=== PATIENT | female | born 1975 ===

== ENCOUNTER 2017-08-03 17:14 | Emergency (ER) | payer OTHER ==
[2017-08-03 17:35] VITALS: O2SAT 100
--- NOTE | 2017-08-03 18:25 | ED PDOC ---
Arrival/HPI - General Chief Complaint: Chest Pain Time Seen by Provider: 08/03/17 17:30 Historian: Patient - History of Present Illness Narrative History of Present Illness (Text): 08/03/17 17:57 A 42 year old female, whose past medical history includes hyperthyroidism, presents to the emergency department complaining of substernal chest pain for 2 hours. Patient denies of any fever, cough, shortness of breath, abdominal pain, nausea, vomiting, or any other complaints. Patient mentions taking baby aspirin but has had no relief. No PMD Time/Duration: Prior to Arrival (2 hours ago) Symptom Onset: Sudden Symptom Course: Unchanged Past Medical History - Provider Review Nursing Documentation Reviewed: Yes - Cardiac Hx Cardiac Disorders: Yes - Pulmonary Hx Respiratory Disorders: No - Neurological Hx Neurological Disorder: No Hx Alzheimer's Disease: No - HEENT Hx HEENT Disorder: No - Renal Hx Renal Disorder: No - Endocrine/Metabolic Hx Endocrine Disorders: No - Hematological/Oncological Hx Blood Disorders: No - Integumentary Hx Dermatological Disorder: No - Musculoskeletal/Rheumatological Hx Musculoskeletal Disorders: No - Gastrointestinal Hx Gastrointestinal Disorders: No Hx Bowel Surgery: No - Genitourinary/Gynecological Hx Genitourinary Disorders: No - Psychiatric Hx Psychophysiologic Disorder: No Hx Substance Use: No Family/Social History - Physician Review Nursing Documentation Reviewed: Yes Family/Social History: No Known Family HX Smoking Status: Never Smoked Hx Alcohol Use: No Hx Substance Use: No Allergies/Home Meds Allergies/Adverse Reactions: Allergies levofloxacin [From Levaquin] Allergy (Verified 08/03/17 17:22) "tremors" Home Medications: Home Meds Medication Instructions Recorded Confirmed No Known Home Med 08/03/17 08/03/17 Review of Systems - Physician Review All systems were reviewed & negative as marked: Yes - Review of Systems Constitutional: absent: Fevers Respiratory: absent: SOB, Cough Cardiovascular: Chest Pain (substernal chest pain) Gastrointestinal: absent: Abdominal Pain, Nausea, Vomiting Physical Exam Vital Signs Reviewed: Yes Vital Signs Temp Pulse Resp BP Pulse Ox 08/03/17 20:45 98.0 F 74 16 144/90 100 08/03/17 17:34 98.7 F 87 20 146/84 100 Temperature: Afebrile Blood Pressure: Normal Pulse: Regular Respiratory Rate: Normal Appearance: Positive for: Well-Appearing, Non-Toxic, Comfortable Pain Distress: None Mental Status: Positive for: Alert and Oriented X 3 - Systems Exam Head: Present: Atraumatic, Normocephalic Pupils: Present: PERRL Extroacular Muscles: Present: EOMI Conjunctiva: Present: Normal Mouth: Present: Moist Mucous Membranes Neck: Present: Normal Range of Motion Respiratory/Chest: Present: Clear to Auscultation, Good Air Exchange. No: Respiratory Distress, Accessory Muscle Use Cardiovascular: Present: Regular Rate and Rhythm, Normal S1, S2. No: Murmurs Abdomen: Present: Normal Bowel Sounds. No: Tenderness, Distention, Peritoneal Signs Back: Present: Normal Inspection Upper Extremity: Present: Normal Inspection. No: Cyanosis, Edema Lower Extremity: Present: Normal Inspection. No: Edema Neurological: Present: GCS=15, CN II-XII Intact, Speech Normal Skin: Present: Warm, Dry, Normal Color. No: Rashes Psychiatric: Present: Alert, Oriented x 3, Normal Insight, Normal Concentration Medical Decision Making ED Course and Treatment: 08/03/17 18:00 Impression: 42 year old female with substernal chest pain. Normal physical exam. Plan: -- EKG -- Chest X-ray -- Labs -- Reassess and disposition Progress Notes: EKG: Ordered, reviewed, and independently interpreted the EKG. Rate : 84 BPM Rhythm : NSR Interpretation : No ST-segment elevations or depressions, no T-wave inversions, normal intervals. Comparison : No previous EKG for comparison. - Lab Interpretations Lab Results: 08/03/17 19:00 08/03/17 19:00 Lab Results 08/03/17 20:00: Urine Opiates Screen Negative, Urine Methadone Screen Negative, Ur Barbiturates Screen Negative, Ur Phencyclidine Scrn Negative, Ur Amphetamines Screen Negative, U Benzodiazepines Scrn Negative, U Oth Cocaine Metabols Negative, U Cannabinoids Screen Negative 08/03/17 20:00: Urine Color Light yellow, Urine Appearance Sl cloudy, Urine pH 6.5, Ur Specific [place] <= 1.005, Urine Protein Negative, Urine Glucose (UA) Negative, Urine Ketones Negative, Urine Blood Trace-intact H, Urine Nitrate Negative, Urine Bilirubin Negative, Urine Urobilinogen 0.2, Ur Leukocyte Esterase Small H, Urine RBC 0 - 2, Urine WBC 2 - 5, Ur Epithelial Cells 3 - 4, Urine Bacteria Few 08/03/17 19:00: Free T4 1.10, Total T3 1.30, TSH 3rd Generation 0.70 08/03/17 19:00: D-Dimer, Quantitative 0.23 08/03/17 19:00: Sodium 136, Potassium 4.4, Chloride 103, Carbon Dioxide 25, Anion Gap 12, BUN 10, Creatinine 0.7, Est GFR ( Amer) > 60, Est GFR (Non- Af Amer) > 60, Random Glucose 94, Calcium 9.1, Magnesium 1.8, Total Bilirubin 0.8, AST 36, ALT 24, Alkaline Phosphatase 80, Lactate Dehydrogenase 763 H, Total Creatine Kinase 80, Troponin I < 0.01, Total Protein 8.3, Albumin 4.2, Globulin 4.0, Albumin/Globulin Ratio 1.0 L 08/03/17 19:00: WBC 9.5, RBC 4.21, Hgb 12.7, Hct 37.1, MCV 88.1, MCH 30.2, MCHC 34.2, RDW 13.3, Plt Count 283, MPV 8.3, Gran % 71.6 H, Lymph % (Auto) 21.4 L, [place] % (Auto) 6.3 H, Eos % (Auto) 0.5 L, Baso % (Auto) 0.2, Gran # 6.81 H, Lymph # 2.0, [place] # 0.6, Eos # 0.1, Baso # 0.02 - RAD Interpretation Radiology Orders: 08/03/17 17:30 CHEST PORTABLE [RAD] Stat - Medication Orders Current Medication Orders: Discontinued Medications Ketorolac Tromethamine (Toradol) 30 mg IVP STAT STA Stop: 08/03/17 18:22 Last Admin: 08/03/17 19:22 Dose: - Scribe Statement The provider has reviewed the documentation as recorded by the Danny Prado Provider Scribe Attestation: All medical record entries made by the [place]rib[place] were at my direction and personally dictated by me. I have reviewed the chart and agree that the record accurately reflects my personal performance of the history, physical exam, medical decision making, and the department course for this patient. I have also personally directed, reviewed, and agree with the discharge instructions and disposition. Disposition/Present on Arrival - Present on Arrival Any Indicators Present on Arrival: No History of DVT/PE: No History of Uncontrolled Diabetes: No Urinary Catheter: No History of Decub. Ulcer: No History Surgical Site Infection Following: None - Disposition Have Diagnosis and Disposition been Completed?: Yes Diagnosis: Non-cardiac chest pain Disposition: HOME/ ROUTINE Disposition Time: 20:20 Condition: GOOD Discharge Instructions (ExitCare): Chest Pain (ED) Additional Instructions: Thank you for letting us take care of you today. Your provider was Dr. Schmid. You were treated for noncardiac chest pain. The emergency medical care you received today was directed at your acute symptoms. If you were prescribed any medication, please fill it and take as directed. It may take several days for your symptoms to resolve. Return to the Emergency Department if your symptoms worsen, do not improve, or if you have any other problems. Please contact your doctor or call one of the physicians/clinics you have been referred to that are listed on the Patient Visit Information form that is included in your discharge packet. Bring any paperwork you were given at discharge with you along with any medications you are taking to your follow up visit. Our treatment cannot replace ongoing medical care by a primary care provider (PCP) outside of the emergency department. Thank you for allowing the [facility] team to be part of your care today. Follow up with your doctor in 2-3 days for re-evaluation and further management. Forms: [employer] (German)
[2017-08-03 19:17] LABS: BASO # 0.02 K/mm3 (0.0-2.0); BASO % 0.2 % (0.0-3.0); EOS # 0.1 (0.0-0.7); EOS % 0.5 % (1.5-5.0); GRAN # 6.81 (1.4-6.5); GRAN % 71.6 % (50.0-68.0); HEMATOCRIT 37.1 % (36.0-48.0); LYMPH % 21.4 % (22.0-35.0); MEAN CELL VOLUME 88.1 fl (80.0-105.0); MEAN CORPUSCULAR HEMOGLOBIN 30.2 pg (25.0-35.0); MEAN CORPUSCULAR HGB CONC 34.2 g/dl (31.0-37.0); MEAN PLATELET VOLUME 8.3 fl (7.0-11.0); MONO # 0.6 (0.1-0.6); MONO % 6.3 % (1.0-6.0); RED CELL DISTRIBUTION WIDTH 13.3 % (11.5-14.5); WHITE BLOOD COUNT 9.5 10^3/ul (4.5-11.0)
[2017-08-03 19:25] LABS: ALKALINE PHOSPHATASE 80 U/L (38-126); ALT/SGPT 24 U/L (7-56); AST/SGOT 36 U/L (14-36); BILIRUBIN,TOTAL 0.8 mg/dL (0.2-1.3); BLOOD UREA NITROGEN 10 mg/dL (7-21); CALCIUM 9.1 mg/dL (8.4-10.5); CARBON DIOXIDE 25 mmol/L (21-33); CHLORIDE 103 mmol/L (95-110); GFR AFRICAN-AMERICAN > 60; GLUCOSE,RANDOM 94 mg/dL (70-110); MAGNESIUM 1.8 mg/dL (1.7-2.2); POTASSIUM 4.4 mmol/L (3.6-5.0); SODIUM 136 mmol/L (132-148); TOTAL PROTEIN 8.3 g/dL (5.8-8.3)
[2017-08-03 19:48] LABS: TROPONIN I < 0.01 ng/mL
[2017-08-03 19:52] LABS: FREE T4 1.1 ng/dL (0.78-2.19)
[2017-08-03 20:06] LABS: T3 1.3 ng/mL (0.97-1.69); THYROID STIMULATING HORMONE 0.7 mIU/mL (0.46-4.68)
[2017-08-03 20:21] LABS: PH,URINE 6.5 (4.7-8.0); URINE BILIRUBIN NEGATIVE (NEGATIVE); URINE BLOOD TRACE-INTACT (NEGATIVE); URINE GLUCOSE (UA) NEGATIVE (NEGATIVE); URINE KETONE NEGATIVE (NEGATIVE); URINE LEUKOCYTE ESTERASE SMALL Leu/uL (NEGATIVE); URINE PROTEIN NEGATIVE mg/dL (<30 mg/dL); URINE UROBILINOGEN 0.2 E.U./dL (<1 E.U./dL)
[2017-08-03 20:23] LABS: URINE APPEARANCE SL CLOUDY (CLEAR); URINE COLOR LIGHT YELLOW (YELLOW)
[2017-08-03 20:32] LABS: URINE RBC 0 - 2 /hpf (0-2)
[2017-08-03 20:33] LABS: URINE BACTERIA FEW (NEG)
[2017-08-03 20:47] VITALS: BP 144/90; PULSE 74; RESP 16; TEMP 98
--- NOTE | 2017-08-04 12:43 | RAD ---
HISTORY: chest pain COMPARISON: No prior. FINDINGS: LUNGS: No active pulmonary disease. PLEURA: No significant pleural effusion identified, no pneumothorax apparent. CARDIOVASCULAR: Normal. OSSEOUS STRUCTURES: No significant abnormalities. VISUALIZED UPPER ABDOMEN: Normal. OTHER FINDINGS: None. IMPRESSION: No active disease.
--- NOTE | 2017-08-04 13:20 | CARD ---
APPROVED REPORT EKG Measurement Heart [id number] <Conclusion> Normal sinus rhythm Possible Left atrial enlargement Borderline ECG
== END 2017-08-03 20:45 | disposition home or self-care (01) ==
LOC: ED 17:14
DX: R07.89 Other chest pain (principal)

== ENCOUNTER 2017-12-14 09:46 | Emergency (ER) | payer OTHER ==
[2017-12-14 09:54] VITALS: BMI 30.9
--- NOTE | 2017-12-14 09:58 | ED PDOC ---
Arrival/HPI - General Time Seen by Provider: 12/14/17 09:49 Historian: Patient - History of Present Illness Narrative History of Present Illness (Text): 12/14/17 09:55 42yo female with PMhx of hypothyroid referred to ED from for chest pain s/p 14hrs trip last week. Patient states she had leg edema/swelling s/p the trip last week. Started having constant stabbing left sternal chest wall pain yesterday. No relieving/exacerbating factors. Denies SOB, cough, diaphoresis, nausea, vomiting, visual changes, LE edema, calf pain, upper back ripping/ tearing pain, abdominal pain. Past Medical History - Provider Review Nursing Documentation Reviewed: Yes - Cardiac Hx Cardiac Disorders: Yes - Pulmonary Hx Respiratory Disorders: No - Neurological Hx Neurological Disorder: No Hx Alzheimer's Disease: No - HEENT Hx HEENT Disorder: No - Renal Hx Renal Disorder: No - Endocrine/Metabolic Hx Endocrine Disorders: No - Hematological/Oncological Hx Blood Disorders: No - Integumentary Hx Dermatological Disorder: No - Musculoskeletal/Rheumatological Hx Musculoskeletal Disorders: No - Gastrointestinal Hx Gastrointestinal Disorders: No Hx Bowel Surgery: No - Genitourinary/Gynecological Hx Genitourinary Disorders: No - Psychiatric Hx Psychophysiologic Disorder: No Hx Substance Use: No Family/Social History - Physician Review Nursing Documentation Reviewed: Yes Family/Social History: Unknown Family HX Smoking Status: Never Smoked Hx Alcohol Use: No Hx Substance Use: No Allergies/Home Meds Allergies/Adverse Reactions: Allergies levofloxacin [From Levaquin] Allergy (Verified 12/14/17 09:54) "tremors" iodine Adverse Reaction (Verified 12/14/17 11:01) DIZZINESS Review of Systems - Physician Review All systems were reviewed & negative as marked: Yes - Review of Systems Constitutional: Normal Eyes: Normal ENT: Normal Respiratory: Normal Cardiovascular: Chest Pain. absent: Palpitations, Edema, Calf Pain, MAGAÑA, Orthopnea Gastrointestinal: Normal Genitourinary Female: Normal Musculoskeletal: Normal Skin: Normal Neurological: Normal Endocrine: Normal Hemo/Lymphatic: Normal Psychiatric: Normal Physical Exam Vital Signs Reviewed: Yes Vital Signs Temp Pulse Pulse Resp BP BP Pulse Ox 12/14/17 12:25 72 16 153/92 H 100 12/14/17 10:12 87 140/93 H 12/14/17 10:01 97.8 F 87 16 140/93 H 100 Temperature: Afebrile Blood Pressure: Normal Pulse: Regular Respiratory Rate: Normal Appearance: Positive for: Well-Appearing, Non-Toxic, Comfortable Pain Distress: None Mental Status: Positive for: Alert and Oriented X 3 - Systems Exam Head: Present: Atraumatic, Normocephalic Pupils: Present: PERRL Extroacular Muscles: Present: EOMI Conjunctiva: Present: Normal Mouth: Present: Moist Mucous Membranes Neck: Present: Normal Range of Motion Respiratory/Chest: Present: Clear to Auscultation, Good Air Exchange, Tender to Palpation (Mild tenderness over left sided sternal wall). No: Respiratory Distress, Accessory Muscle Use, Wheezes, Decreased Breath Sounds, Rales, Retracting, Rhonchi, Tachypneic Cardiovascular: Present: Regular Rate and Rhythm, Normal S1, S2. No: Murmurs Abdomen: Present: Normal Bowel Sounds. No: Tenderness, Distention, Peritoneal Signs Back: Present: Normal Inspection Upper Extremity: Present: Normal Inspection. No: Cyanosis, Edema Lower Extremity: Present: Normal Inspection. No: Edema Neurological: Present: GCS=15, CN II-XII Intact, Speech Normal Skin: Present: Warm, Dry, Normal Color. No: Rashes Psychiatric: Present: Alert, Oriented x 3, Normal Insight, Normal Concentration Medical Decision Making ED Course and Treatment: 12/14/17 09:59 42yo female in ED for left sided chest pain x 2days. PT is comfortable and hemodynamically stable in ED. Her pain is mildly reproducible. Secondary to her recent history of long trip, Chest CTA will be ordered to r/o PE. Labs ordered CXR ordered Chest CTA ordered ASA ordered Will re evaluate pt and dispo accordingly. 12/14/17 12:51 PT remain comfortable and hemodynamically stable in ED EKG NSR @ 87bpm with normal interval and no ST changes. CXR NAD All lab result was WNL Chest CT Preliminary report from [facility] for doppler was negative b/l all result was DW the pt. she will be DC home with ibuprofen for MS pain. Referred to her PMD. TRT ED for any new symptoms. 12/14/2017 12:[address] IMPRESSION: Unremarkable CT pulmonary angiogram. No pulmonary embolus. Dictator: Jero Matias MD - Lab Interpretations Lab Results: 12/14/17 11:17 12/14/17 11:17 Lab Results 12/14/17 11:17: Sodium 137, Potassium 4.6, Chloride 102, Carbon Dioxide 26, Anion Gap 14, BUN 11, Creatinine 0.8, Est GFR ( Amer) > 60, Est GFR (Non- Af Amer) > 60, Random Glucose 96, Calcium 9.7, Magnesium 2.0, Total Bilirubin 0.4, AST 30, ALT 35, Alkaline Phosphatase 91, Lactate Dehydrogenase 467, Total Creatine Kinase 86, Troponin I < 0.01, Total Protein 8.0, Albumin 4.2, Globulin 3.8, Albumin/Globulin Ratio 1.1 12/14/17 11:17: PT 11.1, INR 0.97, APTT 33.9 12/14/17 11:17: WBC 8.9, RBC 4.47, Hgb 13.1, Hct 40.3, MCV 90.2, MCH 29.3, MCHC 32.5, RDW 13.4, Plt Count 272, MPV 8.7, Gran % 65.1, Lymph % (Auto) 26.8, [place] % (Auto) 6.8 H, Eos % (Auto) 1.0 L, Baso % (Auto) 0.3, Gran # 5.77, Lymph # 2.4 , [place] # 0.6, Eos # 0.1, Baso # 0.03 - RAD Interpretation Radiology Orders: 12/14/17 09:52 DUPLEX LOWER EXTRM VEIN BILAT [US] Stat 12/14/17 09:53 CHEST PORTABLE [RAD] Stat 12/14/17 10:01 ANGIO CHEST PE PROTOCOL [CT] Stat - Medication Orders Current Medication Orders: Discontinued Medications Diphenhydramine HCl (Benadryl) 25 mg IVP STAT STA Stop: 12/14/17 11:05 Methylprednisolone (Solu-Medrol) 80 mg IVP STAT STA Stop: 12/14/17 11:05 Disposition/Present on Arrival - Present on Arrival Any Indicators Present on Arrival: No History of DVT/PE: No History of Uncontrolled Diabetes: No Urinary Catheter: No History Surgical Site Infection Following: None - Disposition Have Diagnosis and Disposition been Completed?: Yes Diagnosis: Chest pain Disposition: HOME/ ROUTINE Disposition Time: 12:55 Patient Plan: Discharge Patient Problems: Current Active Problems Problem Status Onset Chest pain Acute Condition: STABLE Discharge Instructions (ExitCare): Chest Pain (ED) Additional Instructions: Take medication as directed Follow up with your doctor/[employer] Return to ED for any new or worsening symptoms Prescriptions: Ibuprofen [Motrin Tab] 600 mg PO Q6 #20 tab Referrals: PCPMEÑO [Primary Care Provider] - Follow up with primary David Graff MD [Staff Provider] - Follow up with primary
[2017-12-14 10:02] VITALS: RESP 16; TEMP 97.8; O2SAT 100
[2017-12-14] MEDS ORDERED: MethylPREDNISolone 40 mg Vial IVP STA (11:04)
[2017-12-14] MEDS ORDERED: DiphenhydrAMINE 50 mg/ml Inj IVP STA (11:04)
[2017-12-14 11:29] LABS: BASO # 0.03 K/mm3 (0.0-2.0); BASO % 0.3 % (0.0-3.0); EOS # 0.1 (0.0-0.7); GRAN # 5.77 (1.4-6.5); GRAN % 65.1 % (50.0-68.0); HEMOGLOBIN 13.1 g/dL (12.0-16.0); LYMPH # 2.4 (1.2-3.4); LYMPH % 26.8 % (22.0-35.0); MEAN CELL VOLUME 90.2 fl (80.0-105.0); MEAN CORPUSCULAR HEMOGLOBIN 29.3 pg (25.0-35.0); MEAN CORPUSCULAR HGB CONC 32.5 g/dl (31.0-37.0); MEAN PLATELET VOLUME 8.7 fl (7.0-11.0); MONO # 0.6 (0.1-0.6); MONO % 6.8 % (1.0-6.0); RBC 4.47 10^6/uL (3.5-6.1); RED CELL DISTRIBUTION WIDTH 13.4 % (11.5-14.5); WHITE BLOOD COUNT 8.9 10^3/ul (4.5-11.0)
[2017-12-14 11:34] LABS: ALB/GLOB RATIO 1.1 (1.1-1.8); ALBUMIN 4.2 g/dL (3.0-4.8); ALT/SGPT 35 U/L (7-56); AST/SGOT 30 U/L (14-36); BLOOD UREA NITROGEN 11 mg/dL (7-21); CALCIUM 9.7 mg/dL (8.4-10.5); GFR AFRICAN-AMERICAN > 60; GFR NON-AFRICAN AMERICAN > 60
[2017-12-14 11:36] LABS: INR 0.97 (0.93-1.08); PROTHROMBIN TIME 11.1 SECONDS (9.4-12.5)
[2017-12-14 11:37] LABS: PARTIAL THROMBOPLASTIN TIME 33.9 Seconds (25.1-36.5)
[2017-12-14 11:45] LABS: TROPONIN I < 0.01 ng/mL
[2017-12-14] MEDS ORDERED: Iodixanol 320 MG/ML 100 ML BOTTLE IV ONE (11:55)
[2017-12-14 12:46] VITALS: BP 153/92; PULSE 72
--- NOTE | 2017-12-14 12:48 | CT ---
PROCEDURE: CT Chest with contrast (Pulmonary Angiogram) HISTORY: chest pain COMPARISON: None available. TECHNIQUE: Axial computed tomography images were obtained of the chest in the pulmonary arterial phase of enhancement. Coronal and sagittal reformatted images were created and reviewed. Intravenous contrast dose: 100 cc Visipaque 320 Mean Hounsfield unit values in the main pulmonary artery: 210.77 Radiation dose: Total exam DLP = 448.79 mGy-cm. This CT exam was performed using one or more of the following dose reduction techniques: Automated exposure control, adjustment of the mA and/or kV according to patient size, and/or use of iterative reconstruction technique. FINDINGS: PULMONARY ARTERIES: Unremarkable. No pulmonary embolism. AORTA: No acute findings. No thoracic aortic aneurysm. LUNGS: Unremarkable. No nodule, mass or pulmonary consolidation. PLEURAL SPACES: Unremarkable. No effusion or pneuomothorax. HEART: Unremarkable. No cardiomegaly. No significant pericardial effusion. LYMPH NODES: No lymphadenopathy. BONES, CHEST WALL: Unremarkable. No fracture or destructive lesion OTHER FINDINGS: Unremarkable. IMPRESSION: Unremarkable CT pulmonary angiogram. No pulmonary embolus.
--- NOTE | 2017-12-14 18:41 | US ---
HISTORY: PHYSICIAN(S): Yogesh Ruiz MD. TECHNIQUE: Duplex sonography and color-flow Doppler with graded compression were used to evaluate the deep venous systems of both lower extremities. FINDINGS: The visualized deep venous systems of both lower extremities are sonographically normal and compressible. Normal wave forms and augmentation are seen. There is no sonographic evidence for deep venous thrombosis in the visualized segments of both lower extremities. IMPRESSION: No sonographic evidence for deep venous thrombosis in the visualized segments of both lower extremities.
--- NOTE | 2017-12-15 16:08 | CARD ---
APPROVED REPORT EKG Measurement Heart [id number] <Conclusion> Normal sinus rhythm Normal ECG
== END 2017-12-14 13:22 | disposition home or self-care (01) ==
LOC: ED 09:46
DX: R07.9 Chest pain, unspecified (principal)
CPT/HCPCS: 71275; 80053; 82550; 83615; 83735; 84484; 85025; 85610; 85730; 93005; 93970; 99284; Q9967